=== PATIENT | female | born 1960 | race Caucasian/White ===

== ENCOUNTER → 2017-06-24 | Outpatient (CLI) | payer OTHER ==
[2017-06-24 18:34] LABS: BASO % 0.3 % (0.0-1.0); EOS % 0.1 % (0.0-3.0); HEMATOCRIT 38.6 % (36.0-47.0); HEMOGLOBIN 12.5 g/dl (12.0-16.0); IMMATURE GRANULOCYTE % 0.4 % (0-0); MEAN CORPUSCULAR HEMOGLOBIN 27.8 pg (27.0-33.0); MEAN CORPUSCULAR HGB CONC 32.4 g/dl (32.0-36.5); MONO # 0.6 10^3/uL (0.0-0.8); MONO % 8.7 % (0.0-5.0); NEUTROPHILS # 5.4 10^3/uL (1.8-7.7); NEUTROPHILS % 76.5 % (36.0-66.0); PLATELET COUNT, AUTOMATED 223 10^3/uL (150-450); RED BLOOD COUNT 4.49 10^6/uL (4.00-5.40); RED CELL DISTRIBUTION WIDTH 13.7 % (11.5-14.5)
== END ==
LOC: M WUC 12:07
DX: R30.0 Dysuria (principal)
CPT/HCPCS: 85025

== ENCOUNTER → 2019-01-20 | Outpatient (REF) | payer OTHER | LOC: M LAB LCGH 11:56 | PROVIDERS: ATTEND Nurse Practitioner Adult Health | DX: Z12.4 Encounter for screening for malignant neoplasm of cervix (principal) | CPT/HCPCS: 87624; G0123 ==